=== PATIENT | male | born 1990 | race American Indian/Alaskan Native ===

== ENCOUNTER 2016-07-30 09:36 | Emergency (ER) | payer SELFPAY ==
[2016-07-30 09:47] VITALS: BP 123/81
[2016-07-30] MEDS ORDERED: BOOSTRIX IM ONE (12:13)
--- NOTE | 2016-07-30 12:38 | Emergency Department Report ---
ED Upper Extremity Inj HPI - General Chief Complaint: Extremity Injury, Upper Stated Complaint: RT HAND INJURY Time Seen by Provider: 07/30/16 11:32 Source: patient Mode of arrival: Ambulatory Limitations: No Limitations - History of Present Illness Initial Comments: This is a 25-year-old male well-nourished with nontoxic or ill in appearance but complains of right fifth digit pain and injury status post football that has occurred yesterday 4 PM. Patient stated while playing football he tried to catch the ball and hyperextend the fifth digit. Patient complains of pain that is a E had a 10 with swelling. Patient denies any numbness or tingling seizure extremity, laceration, chest pain, shortness of breath, nausea or vomiting. Patient denies any drug allergies. MD Complaint: Injury to:: right, finger (5th digit) -: Sudden, days(s) (1) Handedness: right Place: outdoors Severity scale (0 -10): 8 Improves With: medication (OTC NSAIDs) Worsens With: movement of extremity Context: direct blow Associated Symptoms: denies other symptoms. denies: weakness, numbness, neck pain, suspects foreign body, nausea/vomiting, heard/felt popping sensat - Related Data Previous Rx's Medication Instructions Recorded Last Taken Type Ibuprofen [Motrin 600 MG tab] 600 mg PO Q8H PRN 7 Days 07/30/16 Unknown Rx Allergies Allergy/AdvReac Type Severity Reaction Status Date / Time No Known Allergies Allergy Unverified 07/30/16 10:35 ED Review of Systems ROS: Stated complaint: RT HAND INJURY Other details as noted in HPI Constitutional: denies: chills, fever Eyes: denies: eye pain, eye discharge, vision change ENT: denies: ear pain, throat pain Respiratory: denies: cough, shortness of breath, wheezing Cardiovascular: denies: chest pain, palpitations Endocrine: no symptoms reported Gastrointestinal: denies: abdominal pain, nausea, diarrhea Genitourinary: denies: urgency, dysuria Musculoskeletal: denies: back pain, joint swelling, arthralgia Skin: denies: rash, lesions Neurological: denies: headache, weakness, paresthesias Psychiatric: denies: anxiety, depression Hematological/Lymphatic: denies: easy bleeding, easy bruising ED Past Medical Hx - Past Medical History Previous Medical History?: No - Surgical History Past Surgical History?: No - Social History Smoking Status: Current Every Day Smoker Substance Use Type: Alcohol - Medications Home Medications: Home Medications Medication Instructions Recorded Confirmed Last Taken Type Ibuprofen [Motrin 600 MG tab] 600 mg PO Q8H PRN 7 Days 07/30/16 Unknown Rx ED Physical Exam - General Limitations: No Limitations General appearance: alert, in no apparent distress - Head Head exam: Present: atraumatic, normocephalic - Eye Eye exam: Present: normal appearance, PERRL, EOMI - ENT ENT exam: Present: normal exam, normal orophraynx, mucous membranes moist, TM's normal bilaterally, normal external ear exam - Neck Neck exam: Present: normal inspection, full ROM. Absent: tenderness, meningismus, lymphadenopathy, thyromegaly - Respiratory Respiratory exam: Present: normal lung sounds bilaterally. Absent: respiratory distress, wheezes, rales, stridor - Cardiovascular Cardiovascular Exam: Present: regular rate, normal rhythm. Absent: systolic murmur, diastolic murmur, rubs, gallop - GI/Abdominal GI/Abdominal exam: Present: soft, normal bowel sounds. Absent: distended, tenderness - Rectal Rectal exam: Present: deferred - Extremities Exam Extremities exam: Present: normal inspection, full ROM, normal capillary refill. Absent: pedal edema, joint swelling, calf tenderness - Expanded Upper Extremity Exam Right General: Present: normal inspection Shoulder Exam: Present: normal inspection, full ROM. Absent: tenderness, swelling Upper Arm exam: Present: normal inspection, full ROM. Absent: tenderness, swelling Elbow exam: Present: normal inspection, full ROM. Absent: tenderness, swelling Forearm Wrist exam: Present: normal inspection, full ROM. Absent: tenderness, swelling Hand Wrist exam: Present: normal inspection, full ROM, tenderness (lateral fifth digit/hand), swelling. Absent: abrasion, laceration, ecchymosis, erythema , amputation, nail avulsion, subungual hematoma Neuro motor exam: Present: wrist extension intact Neurosensory exam: Present: 2-point discrimination, radial nerve intact, ulnar nerve intact, median nerve intact Vascular: Present: normal capillary refill - Back Exam Back exam: Present: normal inspection, full ROM. Absent: tenderness, CVA tenderness (R), CVA tenderness (L) - Neurological Exam Neurological exam: Present: alert, oriented X3, CN II-XII intact, normal gait - Psychiatric Psychiatric exam: Present: normal affect, normal mood - Skin Skin exam: Present: warm, dry, intact, normal color. Absent: rash ED Course Vital Signs 07/30/16 09:44 Temperature 97.8 F Pulse Rate 75 Respiratory 16 Rate Blood Pressure 123/81 O2 Sat by Pulse 98 Oximetry ED Medical Decision Making - Medical Decision Making ED course: This is a 25-year-old male that presents with strain to her fifth digit. 1-patient received x-ray of the right hand and in the ED triage with no fx noted Dr. Arreguin. 2- after my physical exam, patient received ibuprofen 600 mg and tetanus booster. 3- patient received velcro ulnar gutter at the time of discharge. Patient was instrcuted to follow-up with ortho Dr. Carter. Patient was instructed to apply ice and elevate extremity. 4- patient was discharged on ibuprofen 600 mg by mouth. 5- patient was instructed to follow-up with her primary care doctor in 3-5 days or if symptoms worsen to report back to the emergency room. 6- at time time of discharge, the patient does not seem toxic or ill in appearance. No acute signs of distress noted. Patient agrees to discharge treatment plan of care. No further questions noted by the patient. Critical care attestation.: If time is entered above; I have spent that time in minutes in the direct care of this critically ill patient, excluding procedure time. ED Disposition Clinical Impression: Strain of finger Disposition: DISCHARGED TO HOME OR SELFCARE Is pt being admited?: No Does the pt Need Aspirin: No Condition: Stable Instructions: Ibuprofen (By mouth), RICE Therapy (ED) Additional Instructions: Follow-up with her primary care doctor in 3-5 days. Take ibuprofen as prescribed as needed. Rest, elevate, ice affected area. If symptoms worsen report back to the emergency room. Prescriptions: Ibuprofen [Motrin 600 MG tab] 600 mg PO Q8H PRN 7 Days PRN Reason: Pain Referrals: PRIMARY CAREMD [Primary Care Provider] - 3-5 Days [facility] [Outside] - 3-5 Days [facility] [Outside] - 3-5 Days BELGICA GONZALEZ MD [Staff Physician] - 3-5 Days Forms: Work/School Release Form(ED)
[2016-07-30] MEDS ORDERED: MOTRIN PO ONE (12:45)
--- NOTE | 2016-07-30 13:02 | XRay Report ---
X-RAY RIGHT HAND THREE VIEWS: 07/30/16 09:36:00 CLINICAL: Sports injury. Pain and swelling. FINDINGS: Normal bones and joints. Mild soft tissue swelling at the base of the fifth metacarpal. No foreign body or soft tissue air. No laceration. IMPRESSION: Soft tissue injury.
== END 2016-07-30 13:31 | disposition home or self-care (01) ==
LOC: ED 09:36
DX: S56.117A Strain of flexor muscle, fascia and tendon of right little finger at forearm level, initial encounter (principal); F17.200 Nicotine dependence, unspecified, uncomplicated; W21.01XA Struck by football, initial encounter; Y93.61 Activity, american tackle football; Y92.321 Football field as the place of occurrence of the external cause; Y99.9 Unspecified external cause status
CPT/HCPCS: 90471; 90715; 99283

== ENCOUNTER 2017-01-05 23:55 | Emergency (ER) | payer OTHER ==
[2017-01-06 00:26] LABS: Hematocrit 44.8 % (35.5-45.6); Hemoglobin 14.9 gm/dl (11.8-15.2); Mean Corpuscular HGB Conc 33 % (32-34); Mean Corpuscular Hemoglobin 31 pg (28-32); Mean Corpuscular Volume 93 fl (84-94); Platelet Count 222 K/mm3 (140-440); Red Blood Count 4.82 M/mm3 (3.65-5.03); Red Cell Distribution Width 14.6 % (13.2-15.2); White Blood Count 8.6 K/mm3 (4.5-11.0)
[2017-01-06 00:51] LABS: Anion Gap 21 mmol/L; BUN/Creatinine Ratio 10; Blood Urea Nitrogen 9 mg/dL (9-20); Calcium 9.2 mg/dL (8.4-10.2); Carbon Dioxide 24 mmol/L (22-30); Chloride 98.6 mmol/L (98-107); Glucose 148 mg/dL (75-100); Sodium 141 mmol/L (137-145)
[2017-01-06 01:00] LABS: Potassium 2.7 mmol/L (3.6-5.0)
[2017-01-06 05:38] LABS: Anisocytosis Few; Basophils % (Manual) 0 % (0.0-1.8); Blastocytes % (Manual) 0 %; Diff Status Complete; Large Platelets Rare
[2017-01-06] MEDS ORDERED: K-DUR PO ONE ×2 (05:46→09:59)
[2017-01-06] MEDS ORDERED: BENTYL PO ONE (06:58)
[2017-01-06] MEDS ORDERED: ALUM-MAG HYDROX-SIMETH 200-200-20MG/5ML PO ONE (07:00)
[2017-01-06] MEDS ORDERED: LIDOCAINE VISCOUS 2% PO ONE (07:02)
--- NOTE | 2017-01-06 07:10 | Emergency Department Report ---
ED Abdominal Pain HPI - General Chief Complaint: Chest Pain Stated Complaint: CP W/ ABD PAIN Time Seen by Provider: 01/06/17 06:57 Source: patient Mode of arrival: Ambulatory Limitations: No Limitations - History of Present Illness Initial Comments: 26 yo male with c/o chest and abdominal pain. He has pain in the center of his chest and bilateral sides as well as epigastric pain. He associates this with nausea but no vomiting. He has had chest pain for 2 weeks and abdominal pain for many months , since the summer. He denies a history of Gerd or any stomach issues. He also denies cocaine use but admits to marijuana use and tobacco use since 11yrs old. His stomach and chest pain has decreased since he has been in the emergency department. He works at a job lifting boxes. he c/o blood in his stool MD Complaint: abdominal pain Severity scale (0 -10): 0 - Related Data Previous Rx's Medication Instructions Recorded Last Taken Type Omeprazole Magnesium [PriLOSEC Otc] 20 mg PO QDAY #14 tablet. 01/06/17 Unknown Rx Potassium Chloride [K-Dur] 40 meq PO ONCE #2 tablet 01/06/17 Unknown Rx Allergies Allergy/AdvReac Type Severity Reaction Status Date / Time No Known Allergies Allergy Verified 01/06/17 06:58 ED Review of Systems ROS: Stated complaint: CP W/ ABD PAIN Other details as noted in HPI Constitutional: denies: chills, fever Eyes: denies: eye pain, eye discharge, vision change ENT: denies: ear pain, throat pain Respiratory: denies: cough, shortness of breath, wheezing Cardiovascular: denies: chest pain, palpitations Endocrine: no symptoms reported Gastrointestinal: nausea, other (blood in stool). denies: abdominal pain, diarrhea Genitourinary: denies: urgency, dysuria Musculoskeletal: denies: back pain, joint swelling, arthralgia Skin: denies: rash, lesions Neurological: denies: headache, weakness, paresthesias Psychiatric: denies: anxiety, depression Hematological/Lymphatic: denies: easy bleeding, easy bruising ED Past Medical Hx - Past Medical History Previous Medical History?: Yes Additional medical history: dislocated finger - Surgical History Past Surgical History?: No - Social History Smoking Status: Smoker, Current Status Unknown Substance Use Type: Marijuana - Medications Home Medications: Home Medications Medication Instructions Recorded Confirmed Last Taken Type Omeprazole Magnesium [PriLOSEC Otc] 20 mg PO QDAY #14 tablet. 01/06/17 Unknown Rx Potassium Chloride [K-Dur] 40 meq PO ONCE #2 tablet 01/06/17 Unknown Rx ED Physical Exam - General Limitations: No Limitations General appearance: alert, in no apparent distress - Head Head exam: Present: atraumatic, normocephalic - Eye Eye exam: Present: normal appearance - ENT ENT exam: Present: mucous membranes moist - Neck Neck exam: Present: normal inspection - Respiratory Respiratory exam: Present: normal lung sounds bilaterally. Absent: respiratory distress - Cardiovascular Cardiovascular Exam: Present: regular rate, normal rhythm. Absent: systolic murmur, diastolic murmur, rubs, gallop - GI/Abdominal GI/Abdominal exam: Present: soft, tenderness (epigastrium), normal bowel sounds - Extremities Exam Extremities exam: Present: normal inspection, full ROM. Absent: pedal edema, joint swelling - Back Exam Back exam: Present: normal inspection, full ROM - Neurological Exam Neurological exam: Present: alert, oriented X3, CN II-XII intact (groswsly) - Psychiatric Psychiatric exam: Present: normal affect, normal mood - Skin Skin exam: Present: warm, dry, intact, normal color. Absent: rash ED Course Vital Signs 01/06/17 01/06/17 01/06/17 00:09 02:32 03:00 Temperature 98.7 F Pulse Rate 67 51 L 49 L Respiratory 20 16 16 Rate Blood Pressure 138/100 124/76 108/69 [Right] O2 Sat by Pulse 99 100 100 Oximetry 01/06/17 05:01 Temperature Pulse Rate 60 Respiratory 15 Rate Blood Pressure 120/76 [Right] O2 Sat by Pulse 99 Oximetry ED Medical Decision Making - Lab Data Result diagrams: 01/06/17 00:17 01/06/17 07:48 - Radiology Data Radiology results: report reviewed (NEGATIVE CHEST AND ABDOMEN) Critical care attestation.: If time is entered above; I have spent that time in minutes in the direct care of this critically ill patient, excluding procedure time. ED Disposition Clinical Impression: Hypokalemia Chest pain Qualifiers: Chest pain type: unspecified Qualified Code(s): R07.9 - Chest pain, unspecified Abdominal pain Qualifiers: Abdominal location: epigastric Qualified Code(s): R10.13 - Epigastric pain Disposition: DC-01 TO HOME OR SELFCARE Is pt being admited?: No Does the pt Need Aspirin: No Condition: Stable Instructions: Chest Pain (ED) Prescriptions: Omeprazole Magnesium [PriLOSEC Otc] 20 mg PO QDAY #14 tablet. Potassium Chloride [K-Dur] 40 meq PO ONCE #2 tablet Referrals: PRIMARY CARE, [Primary Care Provider] - 3-5 Days [facility] [Outside] - 3-5 Days
--- NOTE | 2017-01-06 07:49 | XRay Report ---
FINAL REPORT EXAM: XR ABD SERIES W CXR 1V HISTORY: abd pain TECHNIQUE: A PA view of the chest was obtained along with three views of the abdomen. FINDINGS: The chest reveals normal heart size and mediastinum. The lungs are clear. The bones and soft tissues are well maintained. The abdominal bowel gas pattern is unremarkable. There is no evidence of mass effect or suspicious calcifications. The bones and soft tissues do not show any acute changes. IMPRESSION: Within normal limits.
[2017-01-06 08:17] LABS: Anion Gap 17 mmol/L; BUN/Creatinine Ratio 10; Blood Urea Nitrogen 8 mg/dL (9-20); Calcium 9.1 mg/dL (8.4-10.2); Carbon Dioxide 25 mmol/L (22-30); Glucose 94 mg/dL (75-100); Potassium 3.4 mmol/L (3.6-5.0); Sodium 140 mmol/L (137-145)
[2017-01-06 10:34] VITALS: BP 135/65
== END 2017-01-06 10:34 | disposition home or self-care (01) ==
LOC: ED 23:55
DX: E87.6 Hypokalemia (principal); R07.89 Other chest pain; R10.13 Epigastric pain; F12.10 Cannabis abuse, uncomplicated
CPT/HCPCS: 36415; 74022; 80048; 84484; 85007; 85025; 93005; 93010; 99284